=== PATIENT | female | born 1995 | race Caucasian/White ===

== ENCOUNTER 2024-07-27 08:25 | Emergency (ER) | payer MEDICARE, SELFPAY ==
[2024-07-27 08:35] VITALS: BP 102/67
--- NOTE | 2024-07-27 09:00 | ED.MUSCINJ ---
HPI-Injury
General
Chief Complaint: Musculo-Skeletal Complaint
Source: patient
Exam Limitations: none
Time Seen by Provider: 07/27/24 08:52
History of Present Illness-Injury
Initial Injury comments:
29-year-old female presents complaining of right hand pain and swelling starting last night. She got angry and punched a wall. She is right-hand dominant. No other
Phy Exam
Physical Exam
Physical Exam:
General: Well-appearing female no acute respiratory distress
Musculoskeletal exam: right hand swelling with ecchymosis and tenderness over the ulnar aspect of the hand no deformities or malrotation of the fingers.
Skin is intact
Injury Course
Orders/Labs/Results
Orders:
Orders
07/27/24 08:38
Hand, Right 3 View [CR Hand - Right Min 3 Views] Urgent
Comment:
Reason For Exam: injury
07/27/24 08:58
Ulnar Gutter Right-Treatment ONCE
MDM/Problems Addressed
Differential Diagnosis Includes:
Right hand swelling and pain after punching a wall. Consider contusion for sprain versus fracture close
Personally visualized x-rays of the right hand which demonstrate comminuted fracture of the base of the fifth metacarpal. Patient placed in an ulnar gutter splint will be advised to follow-up with orthopedics for further evaluation
*Critical Care Note
Total Time (30-74mins, 75-104mins- exclusive of procedures): Not Applicable
ED Attending Note
-
Portions of this chart may have been created with voice recognition software.� Occasional wrong word or��sound alike� substitutions may have occurred due to the inherent limitations of voice recognition software.
Discharge Plan
Departure
Patient Disposition: Home (Routine Discharge)
Date of Disposition: 07/27/24
Time of Disposition: 09:05
Patient with high blood pressure during this ER visit?: No
Discharge Problem:
Fracture of hand
Instructions: Muscle and Bone Pain (DC)
Referrals:
Justo Aldrich MD [Active] -
Activity Restrictions/Additional Instructions:
Keep splint on and dry. Elevate for swelling. You may use ibuprofen and Tylenol for pain. Follow-up with orthopedics for further evaluation.
Interventions
Interventions:
*Risk Screen - Suicide Last Done: 07/27/24 08:35
*General Assessment Last Done: 07/27/24 08:35
*Neglect/Abuse Screening Last Done: 07/27/24 08:35
Discharge Date and Time
Print Language: SERBIAN
== END 2024-07-27 09:34 | disposition home or self-care (01) ==
LOC: EMR 08:25
PROVIDERS: EMERGENCY PHYSICIAN Emergency Medicine; FAMILY PHYSICIAN Internal Medicine
DX: S62.316A Displaced fracture of base of fifth metacarpal bone, right hand, initial encounter for closed fracture (principal); S60.221A Contusion of right hand, initial encounter; W22.09XA Striking against other stationary object, initial encounter; R45.88 Nonsuicidal self-harm
CPT/HCPCS: 99283; 29125; 73130

== ENCOUNTER 2025-04-15 20:11 | Emergency (ER) | payer MEDICARE, SELFPAY ==
[2025-04-15 20:18] VITALS: BP 139/78
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
== END 2025-04-15 22:16 | disposition home or self-care (01) ==
LOC: EMR 20:11
PROVIDERS: EMERGENCY PHYSICIAN Student in an Organized Health Care Education/Training Program
DX: S09.90XA Unspecified injury of head, initial encounter (principal); V43.52XA Car driver injured in collision with other type car in traffic accident, initial encounter
CPT/HCPCS: 99282